=== PATIENT | male | born 1930 | race American Indian/Alaskan Native ===

== ENCOUNTER 2016-08-01 07:48 | Emergency (ER) | payer MEDICARE ==
[2016-08-01] MEDS ORDERED: CATAPRES PO ONE (10:36)
--- NOTE | 2016-08-01 10:38 | Emergency Department Report ---
HPI - General Chief Complaint: Medical Clearance Time Seen by Provider: 08/01/16 10:05 - HPI HPI: This is an 86-year-old Afro-[place] male presents to the emergency department by EMS with the need for a medical evaluation. The patient does have a history of dementia, as well as diabetes and hypertension. The patient was found by a neighbor sitting between his house and their house this morning. They called 911 and both police and EMS arrived and have brought him to the emergency department. The says that he does have dementia and he is currently back at his baseline but he does not usually wander from the house and that she had forgotten to turn on the alarm last night. It is possible that he had a fall as he was seen laying on his back on the ground but otherwise no obvious signs of trauma. The patient's primary care doctor is Dr. Shea. He was not given anything and did not take anything for symptoms prior to presentation. Patient currently is a poor historian but also denies any current discomfort or physical complaints. ED Past Medical Hx - Past Medical History Previous Medical History?: Yes Hx Hypertension: Yes Hx Diabetes: Yes Hx Psychiatric Treatment: Yes (Dementia) - Surgical History Past Surgical History?: No - Social History Smoking Status: Never Smoker Substance Use Type: None - Medications Home Medications: Home Medications Medication Instructions Recorded Confirmed Last Taken Type Memantine HCl [Namenda Xr] 28 mg PO DAILY 08/01/16 08/01/16 Unknown History Quinapril HCl 40 mg PO DAILY 08/01/16 08/01/16 Unknown History amLODIPine [Norvasc] 10 mg PO DAILY 08/01/16 08/01/16 Unknown History ED Review of Systems ROS: Stated complaint: DEMENTIA/FALL Other details as noted in HPI Comment: Unobtainable due to pts medical conditions Physical Exam - Physical Exam Vital Signs: Vital Signs 08/01/16 08/01/16 08/01/16 08:28 10:20 10:21 Temperature 98.1 F Pulse Rate 75 75 Respiratory 15 13 13 Rate Blood Pressure 227/104 190/117 [Left] O2 Sat by Pulse 98 99 99 Oximetry Physical Exam: EGENERAL: The patient is well-developed well-nourished. HEENT: Normocephalic. Atraumatic. Extraocular motions are intact. Patient has moist mucous membranes. Pupils equal reactive to light bilaterally. NECK: Supple. Trachea is midline. CHEST/LUNGS: Clear to auscultation. There is no respiratory distress noted. HEART/CARDIOVASCULAR: Regular. There is no tachycardia. There is no gallop rub or murmur. ABDOMEN: Abdomen is soft, nontender. Patient has normal bowel sounds. There is no abdominal distention. SKIN: Skin is warm and dry. NEURO: The patient is awake and cooperative. AAO [address] but not time. The patient is cooperative. MUSCULOSKELETAL: There is no tenderness or deformity. There is no limitation range of motion. There is no evidence of acute injury. ED Course Vital Signs 08/01/16 08/01/16 08/01/16 08:28 10:20 10:21 Temperature 98.1 F Pulse Rate 75 75 Respiratory 15 13 13 Rate Blood Pressure 227/104 190/117 [Left] O2 Sat by Pulse 98 99 99 Oximetry ED Medical Decision Making - Lab Data Result diagrams: 08/01/16 11:02 08/01/16 11:02 - EKG Data -: EKG Interpreted by Me EKG shows normal: sinus rhythm (with PACs), axis (left axis deviation), intervals (prolonged NE interval indicating first-degree AV block), QRS complexes, ST-T waves (LVH and nonspecific ST-T changes) Rate: normal - EKG Data When compared to previous EKG there are: previous EKG unavailable Interpretation: other (sinus rhythm with first degree AV block and PACs, LVH, nonspecific ST-T waves) - Radiology Data Radiology results: report reviewed, image reviewed interpreted by me: X-ray of the chest does not show any pneumothorax, rib fractures any acute process. X-ray of the pelvis shows a lot of osteo-arthritic changes and degenerative changes but no acute fracture or dislocation or any acute process. CT of the cervical spine does not show any fractures or subluxation or acute process. CT of the head without contrast shows evidence of atrophy and microangiopathic ischemic disease. Chronic lacunar in the right basal ganglia. No acute cranial process noted. - Medical Decision Making A 86-year-old male presents to the emergency department for evaluation after he was found wandering between his house and the neighbor's house this morning. There was concern for possible fall as the patient was found laying on his back. Patient does have some history of dementia. CT of the head did not show any bleed, shift, mass or any acute process. CT of the cervical spine does not show any fracture, subluxation or any acute process. Chest x-ray and pelvic x- ray showed multiple degenerative changes and osteoarthritic changes but otherwise no acute processes. Patient's labs were unremarkable and do not show any etiology of the patient's symptoms. EKG shows a first-degree AV block. Otherwise no dysrhythmia. The patient was tested with his ambulation around the emergency department and was able to show enough stability as he would've home with his walker. I believe that most likely what happened is the patient is having some exacerbation of his dementia. However with the and family they are able to help the patient with his activities of daily living. I feel the patient is safe for discharge back home at this time. He will follow-up with Dr. Kumar in the next few days and will be brought back to the emergency department with any worsening of symptoms or any acute distress. Family understands and agrees to the plan. The patient did have some hypertensive issues when he first arrived with a systolic of about 220. It started coming down on its own but the patient was given a dose of Catapres and his blood pressure was much better controlled prior to discharge. - Differential Diagnosis dementia, TIA, CVA, brain bleed, sepsis Critical Care Time: No Critical care attestation.: If time is entered above; I have spent that time in minutes in the direct care of this critically ill patient, excluding procedure time. ED Disposition Clinical Impression: Dementia Qualifiers: Dementia type: unspecified type Dementia behavioral disturbance: without behavioral disturbance Qualified Code(s): F03.90 - Unspecified dementia without behavioral disturbance Hypertension Qualifiers: Hypertension type: essential hypertension Qualified Code(s): I10 - Essential ( primary) hypertension Disposition: DISCHARGED TO HOME OR SELFCARE Is pt being admited?: No Condition: Stable Instructions: Dementia (ED), Hypertension (ED) Additional Instructions: Please follow-up with the primary care doctor the next few days. Return to the emergency department with any worsening of your symptoms or any acute distress. Referrals: PRIMARY CARE, [Primary Care Provider] - 3-5 Days TUYET KUMAR JR, MD [Staff Physician] - 3-5 Days Time of Disposition: 15:52
[2016-08-01 11:23] LABS: Basophils % (Auto) 0.4 % (0.0-1.8); Eosinophils % (Auto) 0.4 % (0.0-4.3); Hemoglobin 16.1 gm/dl (11.8-15.2); Mean Corpuscular HGB Conc 33 % (32-34); Mean Corpuscular Hemoglobin 30 pg (28-32); Mean Corpuscular Volume 90 fl (84-94); Platelet Count 163 K/mm3 (140-440); Red Blood Count 5.43 M/mm3 (3.65-5.03); Red Cell Distribution Width 14.2 % (13.2-15.2); White Blood Count 9.7 K/mm3 (4.5-11.0)
--- NOTE | 2016-08-01 11:27 | XRay Report ---
AP pelvis. History: Trauma with pelvic pain. Findings: No fractures or other acute findings are seen. Bony mineralization is normal. Impression: Normal study.
--- NOTE | 2016-08-01 11:38 | XRay Report ---
AP CHEST: HISTORY: Pain after fall AP view of the chest demonstrates a normal mediastinal and cardiac contour with clear lungs and normal bony and soft tissue structures. IMPRESSION: No acute process noted.
[2016-08-01 11:43] LABS: Alanine Aminotransferase 21 units/L (7-56); Albumin 3.6 g/dL (3.9-5); Alkaline Phosphatase 78 units/L (35-129); Anion Gap 17 mmol/L; BUN/Creatinine Ratio 21.25; Bilirubin,Total 0.7 mg/dL (0.1-1.2); Blood Urea Nitrogen 17 mg/dL (9-20); Calcium 9.5 mg/dL (8.4-10.2); Carbon Dioxide 27 mmol/L (22-30); Chloride 102.5 mmol/L (98-107); Glucose 92 mg/dL (75-100); Potassium 4.3 mmol/L (3.6-5.0); Sodium 142 mmol/L (137-145); Total Protein 7.3 g/dL (6.3-8.2)
--- NOTE | 2016-08-01 12:11 | Cat Scan Report ---
CT HEAD WITHOUT CONTRAST: HISTORY: Altered mental status. TECHNIQUE: Sequential CT images without contrast. FINDINGS: Images obtained show bilateral prominence of the sulci and ventricles. There are no abnormal intra- or extra-axial blood or fluid collections. There are no focal masses or evidence of mass effect. The whitt white matter differentiation appears within normal limits. Regions of periventricular decreased attenuation are consistent with microangiopathic ischemic disease. 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 The posterior fossa structures including the fourth ventricle, cerebellum, and brainstem appear normal. IMPRESSION: Evidence of atrophy and microangiopathic ischemic disease. Chronic lacune in the right basal ganglia. No acute intracranial process noted.
--- NOTE | 2016-08-01 12:12 | Cat Scan Report ---
CT SCAN OF THE CERVICAL SPINE: HISTORY: Neck pain after fall. TECHNIQUE: Contiguous 1.25 mm axial images of the cervical spine were obtained. Sagittal and coronal reformatted images. FINDINGS: There is normal alignment of the cervical spine. The body, pedicles and posterior ligaments appear normal. No evidence of fracture or subluxation is seen. Advanced degenerative changes are noted. Previous posterior fusion with bilateral laminectomies have been performed from C3-C7. The spinal canal appears normal. The prevertebral soft tissues appear normal. IMPRESSION: Chronic findings as described. No acute process is noted.
[2016-08-01] MEDS ORDERED: NACL 0.9% 1000 ML 1,000 ML ONE (12:50)
[2016-08-01] MEDS ORDERED: NACL 0.9% 1000 ML 1,000 ML IV ONE (13:16)
[2016-08-01 14:11] VITALS: BP 120/66
[2016-08-01 14:47] LABS: Bilirubin,Urine NEG (Negative); Blood,Urine NEG (Negative); Ketones,Urine TR mg/dL (Negative); Leukocyte Esterase,Urine NEG (Negative); Mucus,Urine FEW /HPF; Nitrite,Urine NEG (Negative); Protein,Urine <15 mg/dL mg/dL (Negative); Urobilinogen,Urine < 2.0 mg/dL (<2.0); WBC,Urine < 1.0 /HPF (0.0-6.0)
== END 2016-08-01 16:12 | disposition home or self-care (01) ==
LOC: ED 07:48
DX: F03.90 Unspecified dementia, unspecified severity, without behavioral disturbance, psychotic disturbance, mood disturbance, and anxiety (principal); I10 Essential (primary) hypertension; E11.9 Type 2 diabetes mellitus without complications
CPT/HCPCS: 36415; 70450; 71010; 72125; 72170; 80053; 81001; 82550; 84443; 84484; 85025; 93005; 93010; 96360; 99285; J7030